=== PATIENT | female | born 1995 | race Caucasian/White ===

== ENCOUNTER 2018-03-18 00:15 | Emergency (ER) | payer BC ==
--- NOTE | 2018-03-18 00:27 | ER Report ---
History and Physical Time Seen By MD: 00:16 HPI/ROS CHIEF COMPLAINT: migraine HISTORY OF PRESENT ILLNESS: This is a 22 year old female. She has a bad migraine that has lasted for about 12 hours. She took her rizatriptan, but no improvement. She has been getting headaches since age 17. She had a headache 2 days ago at night time, but took some benadryl and went back to bed and the headache went away. She usually will get a blank dark spot central vision and then the headache pounding and nausea. Has light sensitivity as well. Has had history of head injury/concussion in the past as well. Normally the Rizatriptan works. This is one of her worst headaches. She has no fevers. Vision changes tonight as well as photophobia, consistent with headache symptoms in the past. No chest pain. No shortness of breath. I also on Zoloft and control. Allergies: Coded Allergies: No Known Drug Allergies (Unverified , 03/18/18) Home Meds Active Scripts Promethazine Hcl (PROMETHAZINE HCL) 25 Mg Tablet, 25 MG PO Q8H Y for MIGRAINE, # 12 TAB 0 Refills Prov:ONEYDA MESA MD 03/18/18 Ketorolac Tromethamine (KETOROLAC TROMETHAMINE) 10 Mg Tab, 10 MG PO Q6H Y for PAIN, #12 TAB 0 Refills Prov:ONEYDA MESA MD 03/18/18 Reviewed Nurses Notes: Yes Constitutional Vital Sign - Last 24 Hours 03/18/18 03/18/18 03/18/18 03/18/18 00:15 00:19 00:20 00:30 Temp 97.9 Pulse ??? 81 72 Resp 20 B/P (MAP) 118/99 (105) 118/99 Pulse Ox 99 94 O2 Delivery Room Air 03/18/18 03/18/18 03/18/18 03/18/18 00:45 00:50 01:05 01:17 Pulse 65 72 70 B/P (MAP) 107/66 (80) Pulse Ox 95 95 97 03/18/18 01:20 Pulse 71 Pulse Ox 95 Physical Exam General Appearance: The patient is alert. Acute distress due to the headache and nausea. Eyes: Pupils are equal, round. Reactive to light. No pallor, injection or icterus. Extraocular movements are intact. Severe photophobia. ENT: Mucous membranes are moist. Normal oral mucosa. Posterior oropharynx is normal. Neck: Supple and non tender. No lymphadenopathy. Respiratory: Lungs are clear to auscultation. Cardiovascular: Regular rate and rhythm. No murmurs, gallops or rubs. Normal capillary refill. Gastrointestinal: Abdomen is soft and non tender. Nondistended. Normal active bowel sounds. Neurological: Alert and oriented x3. No cranial nerve deficits except for the vision changes noted. No focal neurologic deficits in the extremities. Skin: Warm and dry. No rashes. Musculoskeletal: Extremities are nontender. Full range of motion. No tenderness in palpation of the cervical, thoracic and lumbar spine. DIFFERENTIAL DIAGNOSIS: After history and physical exam, differential diagnosis was considered for headache including but not limited to subarachnoid hemorrhage , migraine headache, tension headache and infectious causes such as meningitis, pharyngitis and sinusitis. Medical Decision Making ED Course/Re-evaluation Clinical Indication for ER IV: Hydration, IV Access ED Course Improved with IV Toradol 30mg, IV Phenergan 12.5mg and IV Benadryl 50mg and about 500cc of normal saline. She would like to go home. Provided prescriptions for Toradol and Phenergan. Decision to Disposition Date: Mar 18, 2018 Decision to Disposition Time: 01:19 Depart Departure Latest Vital Signs Vital Signs Date Time Temp Pulse Resp B/P (MAP) Pulse Ox O2 Delivery O2 Flow Rate FiO2 03/18/18 01:20 71 95 03/18/18 01:17 107/66 (80) 03/18/18 00:20 97.9 20 Room Air Impression: Primary Impression: Migraine Condition: Improved Disposition: HOME OR SELF-CARE New Scripts Promethazine Hcl (PROMETHAZINE HCL) 25 Mg Tablet 25 MG PO Q8H Y for MIGRAINE, #12 TAB 0 Refills Prov: ONEYDA MESA MD 03/18/18 Ketorolac Tromethamine (KETOROLAC TROMETHAMINE) 10 Mg Tab 10 MG PO Q6H Y for PAIN, #12 TAB 0 Refills Prov: ONEYDA MESA MD 03/18/18 Patient Instructions: Migraine Headache (ED) Additional Instructions: For your migraine headaches, you can continue to use the Rizatriptan as needed. If this is ineffective, you can take the following medicines. Toradol 10mg, one every 6 hours as needed for headache. Phenergan 25mg, one every 8 hours as needed for the headache or nausea/vomiting. and take over the counter Benadryl 25mg, one every 6 hours as needed for headache or nausea/vomiting. Problem Qualifiers Primary Impression: Migraine Migraine type: with aura Status migrainosus presence: without status migrainosus Intractability: not intractable Qualified Codes: G43.109 - Migraine with aura, not intractable, without status migrainosus ONEYDA MESA MD Mar 18, 2018 00:27
[2018-03-18] MEDS ORDERED: PROMETHAZINE 25 MG/ML 1 ML AMP IVP ONE (00:30)
[2018-03-18] MEDS ORDERED: KETOROLAC 30 MG/ML VIAL IVP ONE (00:30)
[2018-03-18] MEDS ORDERED: diphenhydrAMINE 50 MG/ML VIAL IVP ONE (00:30)
[2018-03-18] MEDS ORDERED: NS(*) 0.9% 1000 ML BAG 1,000 ML IV ONE (00:30)
[2018-03-18 01:17] VITALS: BP 107/66
[2018-03-18] MEDS ORDERED: KET10 PO (01:27)
[2018-03-18] MEDS ORDERED: PROM-110 PO (01:27)
== END 2018-03-18 01:39 | disposition home or self-care (01) ==
LOC: ER 00:25
DX: G43.109 Migraine with aura, not intractable, without status migrainosus (principal)
CPT/HCPCS: 96361; 96374; 96375; 99284; J1200; J1885; J2550; J7030

== ENCOUNTER → 2018-12-02 | Outpatient (REF) | payer BC ==
[~2018-12-02] MED LIST: KET10 PO; PROM-110 PO
[2018-12-02 11:05] LABS: PLATELET COUNT, AUTOMATED 239 K/uL (150-450)
== END ==
PROVIDERS: ATTEND Family Medicine
DX: R07.9 Chest pain, unspecified (principal); R06.00 Dyspnea, unspecified
CPT/HCPCS: 82040; 82247; 82310; 82374; 82435; 82565; 82947; 84075; 84132; 84155; 84295; 84450; 84460; 84520; 85025; 85379